=== PATIENT | male | born 1935 | race Caucasian/White ===

== ENCOUNTER 2018-08-08 22:42 | Emergency (ER) | payer MEDICARE, OTHER ==
[~2018-08-08] VITALS: Ht 175.3 cm; Wt 70.3 kg
[2018-08-08 22:53] VITALS: BP 137/76
--- NOTE | 2018-08-08 23:44 | ER.PDOC ---
General Chief Complaint: Extremities Stated Complaint: WRIST PAIN Time seen by MD: 23:20 History of Present Illness Initial Comments Pt c/o pain in R wrist and hand, and L dorsal hand that started after jumpring down from truck and wrapping up some jumper cables. Hurts with movemwnt of R wrist, and with palpation of dorsal L hand/skin. Occurred: just prior to arrival Where: home Severity: moderate Quality: pain, tenderness Allergies: Coded Allergies: No Known Allergies (Unverified , 12/04/17) Past Medical History Medical History: other (a-fib) Surgical History: no surgical history Social History Smoking: non-smoker Alcohol Use: heavy Drug Use: none Review of Systems Constitutional: no symptoms reported EENTM: no symptoms reported Respiratory: no symptoms reported Cardiovascular: no symptoms reported Gastrointestinal: no symptoms reported Genitourinary: no symptoms reported Musculoskeletal: see HPI Skin: see HPI Psychiatric/Neurological: no symptoms reported Physical Exam General Appearance: alert, no distress Upper Extremity: tenderness (R dorsal wris and distla forearm, up to proximal hand; small area of tenderness and ecchymosis on dorsum of L hand over 2/3rd MC region), limited ROM (decreased R wrist flex/extension due to pain) Vascular: no vascular compromise Neuro/Psych: sensation nml, motor nml Central Exam: oriented X3 Neck/Back: nml inspection Respiratory: no resp distress Progress Progress Pt with degen changes on x-ray, no fx. Likely wrist sprain on R, with hematoma/ contusion on L hand. Will place in splint and have him f/u with PMD. EKG/XRAY/CT/US XRAY Comments: degenerative changes in wrist and b/l hands Departure Time of Disposition: 00:40 Disposition: 01 HOME, SELF-CARE Impression: Primary Impression: Right wrist sprain Additional Impression: Traumatic hematoma of left hand Condition: Stable Referrals: EMILY LOCKWOOD MD (PCP) PRIMARY CARE PROVIDER Duration or Time Spent with Pa: 30 Problem Qualifiers Primary Impression: Right wrist sprain Encounter type: initial encounter Qualified Codes: S63.501A - Unspecified sprain of right wrist, initial encounter Additional Impression: Traumatic hematoma of left hand Encounter type: initial encounter Qualified Codes: S60.222A - Contusion of left hand, initial encounter KARLY FU DO Aug 08, 2018 23:43
--- NOTE | 2018-08-09 00:15 | DIREP ---
PROCEDURE:XRAY WRIST MIN 3VW-RT COMPARISON:None. INDICATIONS:wrist pain FINDINGS: BONES:Normal. JOINTS:Joint space narrowing and subcortical cysts consistent with degenerative change or arthritis. SOFT TISSUES:Normal. OTHER:No additional findings. CONCLUSION:Degenerative changes in the wrist. Dictated by: Félix Azul MD on 08/09/2018 at 00:14 AM
--- NOTE | 2018-08-09 00:15 | DIREP ---
PROCEDURE:XRAY HAND MIN 3 VW-RT COMPARISON:None. INDICATIONS:hand pain - trauma FINDINGS: BONES:Normal. JOINTS:Joint space narrowing and osteophytes throughout the interphalangeal joints and carpal joints. SOFT TISSUES:Normal. OTHER:No additional findings. 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 No acute findings. Dictated by: Félix Azul MD on 08/09/2018 at 00:12 AM
--- NOTE | 2018-08-09 00:19 | DIREP ---
PROCEDURE:XRAY HAND MIN 3 VW-LT COMPARISON:None. INDICATIONS:hand pain - trauma FINDINGS: BONES:Normal. JOINTS:Joint space narrowing and osteophytes throughout the interphalangeal joints and carpal joints. Severe degenerative change in the 1st and 2nd carpometacarpal joint. SOFT TISSUES:Normal. OTHER:No additional findings. CONCLUSION:Degenerative changes as above. No acute findings. Dictated by: Félix Azul MD on 08/09/2018 at 00:16 AM
[2018-08-09] MEDS ORDERED: TORADOL ONE (00:41)
[2018-08-09] MEDS: TORADOL IM STA (00:46)
--- NOTE | 2018-08-09 01:56 | NUR ---
Splint Splint placed on right wrist. Cap refill less than 3 sec.
[2018-08-09 02:00] VITALS: BP 151/84
[2018-08-09 02:08] VITALS: BP 151/84
== END 2018-08-09 02:03 | disposition home or self-care (01) ==
LOC: ER 22:42
DX: S63.501A Unspecified sprain of right wrist, initial encounter (principal); S60.222A Contusion of left hand, initial encounter; I48.91 Unspecified atrial fibrillation; W17.89XA Other fall from one level to another, initial encounter; Y93.89 Activity, other specified; Y92.488 Other paved roadways as the place of occurrence of the external cause; Y99.8 Other external cause status
CPT/HCPCS: 29125; 73110; 73130 ×2; 96372; 99283; J1885